=== PATIENT | female | born 2000 | race African-American/Black ===

== ENCOUNTER 2020-06-01 15:03 | Inpatient (IN) | payer MEDICAID ==
[~2020-06-01] VITALS: Ht 175.3 cm; Wt 108.9 kg
[2020-06-01] MEDS ORDERED: ONDANSETRON HCL 4MG/2ML INJ IV STA (16:40)
[2020-06-01] MEDS ORDERED: SODIUM CHLORIDE 0.9% 1,000 ML IV ONE (16:45)
[2020-06-01 17:40] LABS: BASOPHILS % 0.6 % (0.0-2.0); EOSINOPHILS % 0.9 % (0.0-5.0); HEMATOCRIT. 42.3 % (36.0-48.0); HEMOGLOBIN. 13.7 g/dL (12.0-16.0); LYMPHOCYTES % 34.6 % (20.0-50.0); MEAN CORPUSCULAR HEMOGLOBIN 25.2 pg (28.0-32.0); MEAN PLATELET VOLUME 9.4 fl (7.4-10.4); MONOCYTES % 8.7 % (2.0-8.0); NEUTROPHILS % 55.2 % (40.0-76.0); PLATELET 292 x1000/uL (130-400); RED BLOOD CELL COUNT 5.42 mill/uL (4.2-5.4)
[2020-06-01 17:46] LABS: CHLORIDE 106 mEq/L (98-107)
[2020-06-01 17:51] LABS: INR 1.2; PROTHROMBIN TIME 12.5 sec (9.6-11.0)
[2020-06-01 17:54] LABS: HCG SCREEN NEGATIVE
[2020-06-01 21:14] LABS: CLARITY URINE CLEAR (CLEAR); COLOR URINE YELLOW (YELLOW); KETONES URINE 4+ (NEGATIVE); LEUKOCYTE ESTERASE URINE NEGATIVE (NEGATIVE); NITRITE URINE NEGATIVE (NEGATIVE); OCCULT BLOOD URINE NEGATIVE (NEGATIVE); PH URINE 5.5 (4.5-8.0); PROTEIN URINE 1+ (NEGATIVE); SPECIFIC GRAVITY URINE 1.034 (1.005-1.030)
[2020-06-01] MEDS: MORPHINE SULFATE 4 MG/ML CPJ (NOT FOR IM USE) IV STA ×2 (21:14→21:57)
[2020-06-01] MEDS: ONDANSETRON HCL 4MG/2ML INJ IV STA ×2 (21:14→21:57)
[2020-06-02] VITALS (7 sets, daily range): BP systolic 104–120; BP diastolic 63–85
[2020-06-02] MEDS ORDERED: BISACODYL 10MG SUPP PR PRN (00:30)
[2020-06-02] MEDS ORDERED: ACETAMINOPHEN 325MG TABLET PO PRN (00:30)
[2020-06-02] MEDS ORDERED: TRAZODONE HCL 50MG TABLET PO PRN ×2 (00:30)
[2020-06-02] MEDS ORDERED: NA PHOS,M-B/NA PHOS,DI-BA ENEMA 118ML PR PRN (00:30)
[2020-06-02] MEDS ORDERED: ONDANSETRON HCL 4MG/2ML INJ IV PRN (00:30)
[2020-06-02] MEDS ORDERED: POTASSIUM CHLORIDE INJ 40 MEQ in DEXT 5% WATER 500 ML IV ONE (01:00)
[2020-06-02] MEDS: DEXT 5%/0.45% NACL 1000ML 1,000 ML IV SCH ×2 (02:12→13:09)
[2020-06-02 06:08] LABS: BASOPHILS % 0.7 % (0.0-2.0); EOSINOPHILS % 1.8 % (0.0-5.0); HEMATOCRIT. 37.6 % (36.0-48.0); HEMOGLOBIN. 12.1 g/dL (12.0-16.0); LYMPHOCYTES % 39.2 % (20.0-50.0); MEAN CORPUSCULAR HEMOGLOBIN 25.1 pg (28.0-32.0); MEAN PLATELET VOLUME 9.6 fl (7.4-10.4); MONOCYTES % 11.8 % (2.0-8.0); NEUTROPHILS % 46.5 % (40.0-76.0); PLATELET 257 x1000/uL (130-400); RED BLOOD CELL COUNT 4.83 mill/uL (4.2-5.4)
[2020-06-02 06:22] LABS: INR 1.2; PROTHROMBIN TIME 13.1 sec (9.6-11.0)
[2020-06-02 07:09] LABS: CHLORIDE 108 mEq/L (98-107)
[2020-06-02] MEDS ORDERED: DOCUSATE SODIUM 100MG CAPSULE PO SCH (09:00)
[2020-06-02] MEDS ORDERED: HEPARIN 5000 UNITS/ML VIAL SUBCUT SCH (09:00)
[2020-06-02] MEDS ORDERED: POTASSIUM CHLORIDE INJ 40 MEQ in DEXT 5% WATER 500 ML IV NR (15:00)
== END 2020-06-02 18:18 | disposition home or self-care (01) | DRG 720 ==
LOC: ER 15:03 → 6EST 21:00 → EDBEDREQ 21:58 → ENRESERV 22:36 → CANRESERV 22:36 → ENRESERV 23:22 → EDBEDREQTM 23:31 → EDBEDREQSVC 23:31
PROVIDERS: ADMIT Internal Medicine; ATTEND Internal Medicine
DX: A41.9 Sepsis, unspecified organism (principal); K85.90 Acute pancreatitis without necrosis or infection, unspecified; E66.9 Obesity, unspecified; K59.00 Constipation, unspecified; E16.2 Hypoglycemia, unspecified; E87.6 Hypokalemia; R74.8 Abnormal levels of other serum enzymes; Z98.84 Bariatric surgery status; Z68.35 Body mass index [BMI] 35.0-35.9, adult; R53.1 Weakness; R55 Syncope and collapse
CPT/HCPCS: 36415; 71045; 74176; 80053; 81003; 83735; 84703; 85025; 93005; 99285; J1644; J2270; J2405; J3480; J7030; J7060

== ENCOUNTER 2020-08-19 07:40 | Emergency (ER) | payer MEDICAID ==
[~2020-08-19] VITALS: Ht 175.3 cm; Wt 101.0 kg
[2020-08-19 07:42] VITALS: BP 127/82
[2020-08-19] MEDS ORDERED: SODIUM CHLORIDE 0.9% 1,000 ML IV ONE (08:00)
[2020-08-19 08:20] LABS: BASOPHILS % 0.7 % (0.0-2.0); EOSINOPHILS % 2.4 % (0.0-5.0); HEMATOCRIT. 39.3 % (36.0-48.0); HEMOGLOBIN. 12.8 g/dL (12.0-16.0); LYMPHOCYTES % 36.9 % (20.0-50.0); MEAN CORPUSCULAR HEMOGLOBIN 25.9 pg (28.0-32.0); MEAN CORPUSCULAR VOLUME 79.9 fL (81.0-99.0); MEAN PLATELET VOLUME 8.7 fl (7.4-10.4); MONOCYTES % 8.5 % (2.0-8.0); NEUTROPHILS % 51.5 % (40.0-76.0); PLATELET 265 x1000/uL (130-400); RED BLOOD CELL COUNT 4.92 mill/uL (4.2-5.4); RED CELL DISTRIBUTION WIDTH 16.7 % (11.6-14.6)
[2020-08-19 08:25] LABS: CHLORIDE 108 mEq/L (98-107)
[2020-08-19 09:29] LABS: HCG SCREEN NEGATIVE
[2020-08-21 04:08] LABS: NEISSERIA GONORRHOEAE NAA Negative (Negative)
== END 2020-08-19 09:51 | disposition home or self-care (01) ==
LOC: ER 07:40
DX: Z13.89 Encounter for screening for other disorder (principal); R43.2 Parageusia; Z20.2 Contact with and (suspected) exposure to infections with a predominantly sexual mode of transmission; Z98.84 Bariatric surgery status
CPT/HCPCS: 36415; 80053; 83690; 84703; 85025; 87491; 87591; 99283; J7030; Z7610

== ENCOUNTER 2020-11-26 08:34 | Emergency (ER) | payer MEDICAID ==
[~2020-11-26] VITALS: Ht 175.3 cm; Wt 91.0 kg
[2020-11-26] MEDS ORDERED: SODIUM CHLORIDE 0.9% 1,000 ML IV ONE (09:00)
[2020-11-26 09:21] LABS: BASOPHILS % 0.4 % (0.0-2.0); EOSINOPHILS % 1.6 % (0.0-5.0); HEMATOCRIT. 35.7 % (36.0-48.0); LYMPHOCYTES % 35.5 % (20.0-50.0); MEAN CORPUSCULAR HEMOGLOBIN 25.9 pg (28.0-32.0); MEAN CORPUSCULAR VOLUME 77.3 fL (81.0-99.0); MEAN PLATELET VOLUME 8.5 fl (7.4-10.4); MONOCYTES % 5.7 % (2.0-8.0); NEUTROPHILS % 56.8 % (40.0-76.0); PLATELET 267 x1000/uL (130-400); RED BLOOD CELL COUNT 4.62 mill/uL (4.2-5.4); RED CELL DISTRIBUTION WIDTH 14.8 % (11.6-14.6)
[2020-11-26 09:29] LABS: CHLORIDE 108 mEq/L (98-107)
[2020-11-26 09:33] LABS: ETHANOL BLOOD < 10 mg/dL
[2020-11-26 09:37] LABS: HCG SCREEN NEGATIVE
[2020-11-26 09:46] LABS: *AMPHETAMINES SCREEN URINE NEGATIVE (NEGATIVE); *BARBITURATES SCREEN URINE NEGATIVE (NEGATIVE); CANNABINOID URINE SCREEN NEGATIVE (NEGATIVE); PHENCYCLIDINE URINE SCREEN NEGATIVE (NEGATIVE)
[2020-11-26 09:47] LABS: *BENZODIAZEPINES SCREEN URINE NEGATIVE (NEGATIVE); OPIATES URINE SCREEN NEGATIVE (NEGATIVE)
[2020-11-26 09:49] LABS: *COCAINE SCREEN URINE NEGATIVE (NEGATIVE)
[2020-11-26 09:58] LABS: METHADONE URINE SCREEN NEGATIVE (NEGATIVE)
[2020-11-26 10:30] VITALS: BP 136/89
== END 2020-11-26 10:52 | disposition home or self-care (01) ==
LOC: ER 08:34
DX: R42 Dizziness and giddiness (principal); I10 Essential (primary) hypertension; Z98.84 Bariatric surgery status
CPT/HCPCS: 36415; 80053; 80305; 80320; 81025; 83690; 83880; 84484; 84703; 85025; 93005; 99284; J7030; Z7610; G0480

== ENCOUNTER 2021-11-03 13:55 | Emergency (ER) | payer MEDICAID ==
[~2021-11-03] VITALS: Ht 172.7 cm; Wt 85.0 kg
[2021-11-03 14:07] VITALS: BP 122/85
[2021-11-03] MEDS ORDERED: SODIUM CHLORIDE 0.9% 1,000 ML IV ONE (16:15)
== END 2021-11-03 17:36 | disposition home or self-care (01) ==
LOC: ER 13:55
DX: E86.0 Dehydration (principal)
CPT/HCPCS: 96360; 99283; J7030

== ENCOUNTER 2022-06-18 22:33 | Emergency (ER) | payer MEDICAID ==
[~2022-06-18] VITALS: Ht 175.3 cm; Wt 86.6 kg
[2022-06-18] MEDS ORDERED: SODIUM CHLORIDE 0.9% 1,000 ML IV ONE (23:30)
[2022-06-19] MEDS ORDERED: FAMOTIDINE 20MG/2ML VIAL IV STA (00:19)
[2022-06-19 01:19] VITALS: BP 119/81
== END 2022-06-19 01:23 | disposition home or self-care (01) ==
LOC: ER 22:33
DX: E86.0 Dehydration (principal); R55 Syncope and collapse
CPT/HCPCS: 96361; 96374; 99283; J3490; J7030

== ENCOUNTER 2022-11-29 03:53 | Emergency (ER) | payer MEDICAID ==
[~2022-11-29] VITALS: Ht 175.3 cm; Wt 86.0 kg
[2022-11-29 04:03] VITALS: BP 116/84; O2SAT 100
[2022-11-29] MEDS ORDERED: SODIUM CHLORIDE 0.9% 1,000 ML IV ONE (04:30)
[2022-11-29] MEDS ORDERED: POLY17PO3 MT (04:31)
[2022-11-29 05:59] VITALS: PULSE 70; RESP 16; TEMP 98.1
== END 2022-11-29 06:02 | disposition home or self-care (01) ==
LOC: ER 03:53
DX: K59.00 Constipation, unspecified (principal)
CPT/HCPCS: 81025; 96360; 96361; 99283; J7030; Z7610 ×2